=== PATIENT | male | born 1945 | race Caucasian/White ===

== ENCOUNTER 2024-08-13 10:47 | Emergency (ER) | payer OTHER, SELFPAY ==
[2024-08-13 11:11] VITALS: BP 124/73
[2024-08-13 11:46] LABS: % Basophils 0.5 % (0-2); % Eosinophils 1.7 % (0-6); % Immature Granulocytes 0.3 % (0-0.5); % Lymphocytes 23.6 % (20.5-51.1); % Monocytes 7.1 % (1.7-9.3); % Neutrophils 66.8 % (42.2-75.2); Absolute Eosinophils 0.1 10^3/uL (0-0.7); Absolute Lymphocytes 1.5 10^3/uL (1.2-3.4); Absolute Monocytes 0.5 10^3/uL (0.1-0.6); Absolute Neutrophils 4.2 10^3/uL (1.4-6.5); Hematocrit 41.2 % (39.0-52.0); Hemoglobin 14.1 g/dL (13.0-18.0); Mean Corp Hgb Conc. 34.2 g/dL (33.0-37.0); Mean Corpuscular Hgb 31.9 pg (27.0-31.0); Mean Corpuscular Volume 93.2 fL (80.0-94.0); Mean Platelet Volume 9.7 fL (7.4-10.4); Nucleated Red Blood Cells % 0 % (-); Platelet Count 211 10^3/uL (130-400); Red Blood Cell Count 4.42 10^6/uL (4.70-6.10); Red Cell Dist. Width 12.9 % (11.5-14.5); White Blood Cell Count 6.3 10^3/uL (4.8-10.8)
[2024-08-13 12:06] LABS: ALT (SGPT) 16 U/L (0-50); AST (SGOT) 21 U/L (17-59); Albumin 3.9 g/dl (3.5-5.0); Alkaline Phosphatase 92 U/L (38-126); Blood Urea Nitrogen 22 mg/dl (9-20); Calcium 10.1 mg/dl (8.4-10.2); Carbon Dioxide 26 mmol/L (22-30); Chloride 106 mmol/L (98-107); Glucose 133 mg/dl (70-99); Potassium 4.9 mmol/L (3.5-5.1); Sodium 140 mmol/L (135-145); Total Bilirubin 0.7 mg/dl (0.2-1.3); Total Protein 6.5 g/dl (6.3-8.2); eGFR > 60.00
--- NOTE | 2024-08-13 13:41 | ED.GENMED ---
History of Present Illness
General
Chief Complaint: Skin Problem
Time Seen by Provider: 08/13/24 12:41
History of Present Illness
History of Present Illness:
78-year-old male with history of insulin-dependent diabetes and A-fib on Eliquis presents the emergency department for evaluation of right calf swelling, redness, and pain. He notes that he tore his Achilles tendon 2 months ago and is being treated
nonoperatively, had been using a orthopedic boot up until recently. Denies any fevers or chills.
Review of Systems
Review of Systems
Allergies reviewed?: Yes
All Other Systems: ROS reviewed and negative except as documented in HPI and ROS
Phy Exam
Physical Exam
Physical Exam:
GEN: Well appearing, NAD, WDWN
HEENT: Oral mucosa moist, no scleral icterus
Cardiac: Regular rate
Lung: No respiratory distress, no tachypnea
MSK: Diffuse edema to the right calf, mild erythema, no open wounds, no thready venous cords
Skin: Good color, no pallor or jaundice, no rashes
Neuro: AO x3, moves all extremities freely
Psych: Calm, cooperative
Course
Orders/Labs/Results
Orders:
Orders
08/13/24 11:26
Complete Blood Count/With Diff Urgent
Comprehensive Metabolic Panel Urgent
08/13/24 12:54
Venous Doppler Lwr Ext Rt [US Periph Venous LOWER Ext RT] Urgent
Comment:
Reason For Exam: RLE edema
Abnormal Lab Results
08/13/24
11:26
RBC 4.42 L 10^6/uL
(4.70-6.10)
MCH 31.9 H pg
(27.0-31.0)
BUN 22 H mg/dl
(9-20)
Glucose 133 H mg/dl
(70-99)
08/13/24 11:26
08/13/24 11:26
Vital Signs
Initial and Last Documented VS:
Initial Vital Signs
Temp Pulse Resp BP Pulse Ox
98.3 F 69 16 124/73 97
08/13/24 11:11 08/13/24 11:11 08/13/24 11:11 08/13/24 11:11 08/13/24 11:11
Last Documented Vital Signs
Temp Pulse Resp BP Pulse Ox
98.3 F 69 16 124/73 97
08/13/24 11:11 08/13/24 11:11 08/13/24 11:11 08/13/24 11:11 08/13/24 11:11
MDM/Problems Addressed
MDM/Problems Addressed:
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
*Critical Care Note
Total Time (30-74mins, 75-104mins- exclusive of procedures): Not Applicable
ED Attending Note
-
Portions of this chart may have been created with voice recognition software.� Occasional wrong word or��sound alike� substitutions may have occurred due to the inherent limitations of voice recognition software.
Discharge Plan
Departure
Patient Disposition: Home (Routine Discharge)
Date of Disposition: 08/13/24
Time of Disposition: 13:41
Patient with high blood pressure during this ER visit?: No
Discharge Problem:
Cellulitis of leg, right
Instructions: Cellulitis (Skin Infection), Adult (DC), Reveles's (popliteal) cyst
Prescriptions:
New
cephalexin 500 mg capsule
500 mg PO Q8H 7 Days Qty: 21 0RF
No Action
aspirin 81 MG tablet,delayed release (DR/EC)
81 mg PO HS
levothyroxine 125 MCG tablet
125 mcg PO HS
ramipril 10 MG capsule
10 mg PO DAILY
diltiazem HCl 300 MG tablet extended release 24 hr
300 mg PO DAILY
bimatoprost [Lumigan] 1 DROP drops
1 drp BOTH EYES HS
icosapent ethyl [Vascepa] 1 GM capsule
2 gm PO BID
apixaban [Eliquis] 5 MG tablet
5 mg PO BID
canagliflozin [Invokana] 300 MG tablet
300 mg PO DAILY
dulaglutide [Trulicity] 0.75 MG/0.5 ML pen injector
0.75 mg SQ WEEKLY
evolocumab [Repatha Syringe] 140 MG/ML syringe
140 mg SQ .EVERYTWOWEEKS
metoprolol succinate 25 MG tablet extended release 24 hr
12.5 mg PO DAILY
metformin 1,000 MG tablet
1,000 mg PO BID Qty: 0 0RF
Rx Instructions:
Hold Metformin post procedure, resume am
Referrals:
Jason Nam MD [Family Provider] -
Interventions
Interventions:
*Risk Screen - Suicide Last Done: 08/13/24 11:11
*General Assessment Last Done: 08/13/24 11:11
*Neglect/Abuse Screening Last Done: 08/13/24 11:11
*Nursing Disposition Last Done: 08/13/24 14:18
ED-Skin Assessment Last Done: 08/13/24 14:16
Discharge Date and Time
Discharge Date/Time: 08/13/24 14:40
Print Language: CITIZ[place]
== END 2024-08-13 14:40 | disposition home or self-care (01) ==
LOC: EMR 10:47
PROVIDERS: Emergency Medicine; EMERGENCY PHYSICIAN Emergency Medicine; FAMILY PHYSICIAN Internal Medicine
DX: L03.115 Cellulitis of right lower limb (principal); E11.9 Type 2 diabetes mellitus without complications; I48.91 Unspecified atrial fibrillation; Z79.01 Long term (current) use of anticoagulants; Z79.4 Long term (current) use of insulin
CPT/HCPCS: 99284; 80053; 85025; 93971